=== PATIENT | female | born 1990 | race Caucasian/White ===

== ENCOUNTER 2019-02-06 05:59 | Inpatient (IN) | payer OTHER ==
[2019-02-04 13:47] LABS: ABS Eosinophils 0.2 10^3/ul (0-0.6); ABS Lymphocytes 1.8 10^3/ul (1.0-4.8); ABS Neutrophils 8.8 10^3/ul (1.5-7.7); Eosinophil % 1.6 %; Hematocrit 36 % (35-47); Hemoglobin 12.5 g/dL (12.0-16.0); Lymphocyte % 15.4 %; Mean Corpuscular HGB Conc 35 g/dL (31-36); Mean Corpuscular Hemoglobin 31 pg (27-31); Mean Corpuscular Volume 90 fL (80-97); Mean Platelet Volume 8.3 fL (7.4-10.4); Platelet Count 238 10^3/uL (150-450); Red Blood Count 4.02 10^6 /uL (3.70-4.87); Red Cell Distribution Width 14 % (10-15); White Blood Count 11.8 10^3/uL (3.5-10.8)
--- NOTE | 2019-02-05 20:44 | HP ---
General Information - Reason for Visit at Term, prior section X 2, desires permanent surgical sterilization via bilateral tubal ligation. - General Information Maternal Age: 29 Grav: 4 Para: 2 SAB: 0 IEA: 0 Estimated Due Date: 02/13/19 Determined By: LMP Gestational Age in Weeks/Days: 39 Maternal Blood Type and Rh: A Positive - Results this Serology/RPR Result: Non-Reactive Rubella Result: Immune HBsAg Result: Negative HIV Result: Negative GBS Culture Result: Negative Past Medical History Delivery History: Hx C/Section - 2008 primary for twins, 2011 Repeat , See Records Pertinent Past Medical History: See Records Past Medical History Comment: Asthma Pertinent Past Surgical History: See Records Past Surgical History Comment: Cholecystectomy 2014 Sections 2008 and 2011 Pertinent Family History: See Records - Diabetes, HTN, Stroke, Blood clots. - Antepartal Records Antepartal Records: Reviewed, Complicated by: - 2 prior sections, BMI 39 Review of Systems Constitutional: Comfortable CV Complaint: No Respiratory: Shortness of Breath: No Gastrointestinal: No Nausea/Vomiting, Normal Bowel Movement, Nausea, Vomiting Genitourinary: No Dysuria, No Bleeding, No Leaking Fluid Musculoskeletal: No Complaint, No Epigastric Pain Neurological: No Headache, No Visual Changes Movement: Normal Exam Allergies/Adverse Reactions: Allergies MS Amoxicillin [From Augmentin] Allergy (Intermediate, Verified 02/04/19 14:06) Rash MS Clavulanic Acid [From Augmentin] Allergy (Intermediate, Verified 02/04/19 14: 06) Rash Penicillins Allergy (Verified 02/04/19 14:05) Rash Temp 98.7 BP 132/84 P 72 RR 20 Lab Values - Entire Visit: Laboratory Tests 02/04/19 02/04/19 13:30 13:30 WBC 11.8 H RBC 4.02 Hgb 12.5 Hct 36 MCV 90 MCH 31 MCHC 35 RDW 14 Plt Count 238 MPV 8.3 Neut % (Auto) 74.7 Lymph % (Auto) 15.4 [place] % (Auto) 8.1 Eos % (Auto) 1.6 Baso % (Auto) 0.2 Absolute Neuts (auto) 8.8 H Absolute Lymphs (auto) 1.8 Absolute Monos (auto) 1.0 H Absolute Eos (auto) 0.2 Absolute Basos (auto) 0.0 Absolute Nucleated RBC 0.0 Nucleated RBC % 0.0 Blood Type A Positive Antibody Screen Negative - Measurements Height: 5 ft 3 in Weight: 242 lb Weight in lbs: 242.472603 Body Mass Index (BMI): 42.8 Pre- Weight: 209 lb Weight Gained This : 33 lbs and 0 ozs - Exam Breast: Breast Exam Deferred CVA: No CVA Tenderness Extremities: No Edema Heart: Normal Rhythm/Heart Sounds HEENT: No Significant Findings Lungs: Clear Bilaterally Rectal: Rectal Exam Deferred Reflexes: DTR 2+ Thyroid: No Thyromegaly - Abdominal Exam Abdomen Exam: Non-Tender, Fundal Height Consistent with Dates - Ultrasound/Biophysical Profile Ultrasound Status: Not Done Targeted Exam Findings See L&D Outpatient Visit Provider Note for Findings: N/A Cervical Exam: Closed Effacement: 50% Station: -1 Presenting Part: Vertex Membrane Status: Intact Bleeding/Discharge: None EFM Findings - External Monitor Findings Baseline Heart Rate: 140 Contractions: None Assessment/Plan - Assessment at 39 weeks, two prior sections, desires sterilization. - Obstetrical Risk Factors Obstetrical Risk Factors: Obesity - BMI 39, Previous C/Section in Labor - Plan Plan: IV Hydration, Expedite C/S Delivery, Antibiotic Prophylaxis Plan Comment: Plan Repeat Section and bilateral tubal ligation. - Date/Time of Admission Date of Admission: 02/06/19 - History/Physical from 01/30/19 no interval change. Time of Admission: 07:00
[~2019-02-06 05:59] MED LIST: Buffered Lidocaine 1% SYRIN* 1 ML/SYRINGE INTRADERM ONE
[2019-02-06] MEDS ORDERED: Sodium Citrate/Citric Acid* 15 ML UDC PO ONE (06:00)
[2019-02-06] MEDS ORDERED: Lactated Ringers 1000 ML Bag* 1,000 ML IV SCH ×2 (06:00→10:00)
[2019-02-06] MEDS ORDERED: Buffered Lidocaine 1% SYRIN* 1 ML/SYRINGE INTRADERM ONE (07:00)
[2019-02-06] MEDS ORDERED: Lactated Ringers 1000 ML Bag* 1,000 ML IV ONE (07:00)
[2019-02-06] MEDS ORDERED: Clindamycin 900 MG/D5W BAG(*) 900 MG/50 ML BAG IVPB ONE (07:15)
[2019-02-06] MEDS ORDERED: Gentamicin ADULT (*) 120 MG in NS 0.9% 100 ML* 100 ML IVPB ONE (07:15)
[2019-02-06] MEDS ORDERED: Phenylephrine 40 MCG/ML SYRINGE ONE (07:27)
[2019-02-06] MEDS ORDERED: OXYTOCIN* 10 UNITS/ML 1 ML VIAL ONE (07:27)
[2019-02-06] MEDS ORDERED: Morphine PF AMP (0.5MG/ML)* 5 MG/10 ML AMP ONE (07:27)
[2019-02-06] MEDS ORDERED: fentaNYL* 50 MCG/ML 2 ML VIAL (100 MCG VIAL) IV PRN (07:37)
[2019-02-06] MEDS ORDERED: Scopolamine 1.5 mg* PATCH TRANSDERM PRN (07:37)
[2019-02-06] MEDS ORDERED: Naloxone* 0.4 MG/ML 1 ML VIAL IV PRN ×2 (07:37→08:49)
[2019-02-06] MEDS ORDERED: Ondansetron INJ* 2 MG/ML VIAL IV PRN ×2 (07:37→08:49)
[2019-02-06] MEDS ORDERED: Clindamycin 900 MG IVPREMIX(* 900 MG/50 ML SDV IV ONE (08:00)
[2019-02-06] MEDS ORDERED: Ondansetron INJ* 2 MG/ML VIAL ONE (08:14)
[2019-02-06] MEDS ORDERED: diPHENhydraMINE IV* 50 MG/ML 1 ml VIAL (BENADRYL) IV PRN (08:49)
[2019-02-06] MEDS ORDERED: Nalbuphine* 10 MG/ML 1 ML VIAL IV PRN (08:49)
[2019-02-06] MEDS ORDERED: oxyCODONE/Acetamin 5/325 MG* TAB PO PRN ×2 (08:49)
[2019-02-06] MEDS ORDERED: fentaNYL* 50 MCG/ML 2 ML VIAL (100 MCG VIAL) ONE ×2 (08:55→09:15)
[2019-02-06] MEDS ORDERED: Ketorolac INJ* 30 MG/ML 1 ML VIAL ONE (08:57)
[2019-02-06] MEDS ORDERED: DiMENhydriNATE IV* 50 MG/ML VIAL ONE (08:57)
[2019-02-06] MEDS ORDERED: Witch Hazel PAD* JAR TOPICAL PRN (09:29)
[2019-02-06] MEDS ORDERED: Glycerin ADULT SUPP PR PRN (09:29)
[2019-02-06] MEDS ORDERED: Zolpidem TAB* 5 MG PO PRN ×2 (09:29→23:59)
[2019-02-06] MEDS ORDERED: Dibucaine 1% 28.35 GM TUBE PR PRN (09:29)
[2019-02-06] MEDS: Ketorolac INJ* 30 MG/ML 1 ML VIAL IV PRN ×2 (15:24→21:51)
[2019-02-06] MEDS: Docusate CAP* 100 MG PO SCH ×2 (15:25→21:51)
[2019-02-06] MEDS: Simethicone TAB* 80 MG TAB.CHEW PO SCH ×3 (15:25→21:51)
[2019-02-06] MEDS: Albuterol HFA INHALER* 8 gm MDI INH PRN (19:03)
--- NOTE | 2019-02-06 23:33 | OP ---
DATE OF OPERATION: 02/06/19 - ROOM #102 DATE OF : 89 SURGEON: Negro Michelle MD FIRMWARE TEST ENGINEER: Dr. Montes. ANESTHESIA: Spinal. PRE-OP DIAGNOSIS: at 39 weeks. Prior section x2 and desires permanent surgical sterilization. POST-OP DIAGNOSIS: at 39 weeks. Prior section x2 and desires permanent surgical sterilization. OPERATIVE PROCEDURE: Repeat low transverse section with bilateral tubal ligation via fimbriectomy. ESTIMATED BLOOD LOSS: 600 cc. SPECIMEN SENT TO PATHOLOGY: Cord blood and portions of the left and right fallopian tubes. FLUIDS: She received 2300 cc of IV crystalloid fluid. URINE OUTPUT: Clear. FINDINGS: Delivery of a viable female with a weight of 7 pounds 9 ounces with Apgars of 9 and 9. The placenta was grossly intact with a 3-vessel cord noted. The uterus, adnexa and bowel and bladder were within normal limits. There were no complications. DESCRIPTION OF PROCEDURE: The patient was taken to the operating room where she was identified. She was placed on the operating table where a spinal anesthetic was obtained without difficulty. She was placed in the supine position with a leftward tilt, prepped and draped in a normal sterile fashion. A Pfannenstiel skin incision was made with a knife and carried through to the underlying layer of fascia. The fascia was nicked in the midline and extended laterally with curved Lopez scissors. The fascia was grasped superiorly and inferiorly with Carmela clamps and dissected off sharply from the rectus muscle. The rectus muscle was in the midline bluntly. The peritoneum was identified, grasped with pickups, and entered sharply with Metzenbaum scissors and extended superiorly and inferiorly sharply. A bladder blade was inserted into the patient's abdomen. A bladder flap was created using Metzenbaum scissors, over which the bladder blade was then reinserted. A low-transverse uterine incision was made with a knife, extended laterally with bandage scissors. The infant's head was then grasped and delivered atraumatically. The nose and mouth were suctioned. The infants body was then delivered, the cord was clamped and cut and the infant was handed off to waiting dry transfer worker. Cord bloods were obtained. The placenta was removed manually. The uterus was then exteriorized, cleared of all clot and debris using moist laparotomy sponges. The uterine incision was then closed using 0-Polysorb suture in a running locked fashion with a second imbricating layer of 0-Polysorb suture with good hemostasis noted. Attention was then brought on to the patient's fallopian tube for the bilateral tubal ligation via fimbriectomy in the usual fashion was performed with portion from the right and left tube and fimbria were sent to pathology. At this point, the uterus was returned to the patient' s abdomen. The gutters were then cleared of all clots and debris using moist laparotomy sponges. All the sponges were removed from the patient's abdomen. The peritoneum was then closed using 3-0 Polysorb suture in a running fashion. The fascia was closed using 0-Polysorb suture in a running fashion. The subcutaneous Ishaan's fascia was closed using 3-0 Polysorb suture in interrupted stitches and the skin was closed with 4-0 Monocryl in subcuticular stitch. The patient tolerated the procedure well. Sponge, lap, and needle counts were correct x2. She was then transferred to the recovery room area in stable condition. [id number] #: [id number] KRYSTYNA
[2019-02-07] MEDS ORDERED: oxyCODONE/Acetamin 5/325 MG* TAB PO PRN ×2 (00:04)
[2019-02-07] MEDS: Ketorolac INJ* 30 MG/ML 1 ML VIAL IV PRN (03:58)
[2019-02-07 06:59] LABS: ABS Eosinophils 0.2 10^3/ul (0-0.6); ABS Lymphocytes 1.6 10^3/ul (1.0-4.8); ABS Monocytes 1.4 10^3/ul (0-0.8); ABS Neutrophils 9.9 10^3/ul (1.5-7.7); Eosinophil % 1.6 %; Hematocrit 31 % (35-47); Hemoglobin 10.9 g/dL (12.0-16.0); Lymphocyte % 12.3 %; Mean Corpuscular HGB Conc 35 g/dL (31-36); Mean Corpuscular Hemoglobin 31 pg (27-31); Mean Corpuscular Volume 91 fL (80-97); Mean Platelet Volume 8.6 fL (7.4-10.4); Platelet Count 195 10^3/uL (150-450); Red Blood Count 3.45 10^6 /uL (3.70-4.87); Red Cell Distribution Width 14 % (10-15); White Blood Count 13.1 10^3/uL (3.5-10.8)
[2019-02-07] MEDS: Docusate CAP* 100 MG PO SCH ×3 (08:21→20:37)
[2019-02-07] MEDS: Simethicone TAB* 80 MG TAB.CHEW PO SCH ×4 (08:21→20:37)
[2019-02-07] MEDS ORDERED: Ferrous Gluconate TAB* 324 MG TAB PO SCH (09:00)
[2019-02-07] MEDS: Acetaminophen TAB* 325 MG PO PRN ×2 (11:09→16:28)
[2019-02-07] MEDS: Ibuprofen TAB* 600 MG PO PRN ×3 (11:09→23:33)
[2019-02-07] MEDS: Albuterol HFA INHALER* 8 gm MDI INH PRN (20:38)
[2019-02-08] MEDS: Ibuprofen TAB* 600 MG PO PRN ×2 (05:32→11:31)
[2019-02-08 07:52] VITALS: BP 120/68
[2019-02-08] MEDS: Docusate CAP* 100 MG PO SCH (09:09)
[2019-02-08] MEDS: Simethicone TAB* 80 MG TAB.CHEW PO SCH ×2 (09:10→13:01)
[2019-02-08] MEDS: Acetaminophen TAB* 325 MG PO PRN (09:10)
[2019-02-09] MEDS ORDERED: Scopolamine PATCH Remove* 1 NOTE MISC PATCH OFF ONE (07:38)
== END 2019-02-08 14:03 | disposition home or self-care (01) | DRG 540 ==
LOC: MCHOB 05:59
PROVIDERS: ADMIT Obstetrics & Gynecology; ATTEND Obstetrics & Gynecology
PROC: 4A1HXCZ Monitoring of Products of Conception, Cardiac Rate, External Approach (ICD-10-PCS; 2019-02-06)
PROC: 0UB70ZZ Excision of Bilateral Fallopian Tubes, Open Approach (ICD-10-PCS; 2019-02-06)
PROC: 10D00Z1 Extraction of Products of Conception, Low, Open Approach (ICD-10-PCS; principal; 2019-02-06 07:30)
DX: O34.211 Maternal care for low transverse scar from previous cesarean delivery (principal); J45.909 Unspecified asthma, uncomplicated; O99.52 Diseases of the respiratory system complicating childbirth; O99.214 Obesity complicating childbirth; O99.334 Smoking (tobacco) complicating childbirth; F17.200 Nicotine dependence, unspecified, uncomplicated; Z3A.39 39 weeks gestation of pregnancy; Z37.0 Single live birth; Z88.1 Allergy status to other antibiotic agents; Z88.0 Allergy status to penicillin; Z90.49 Acquired absence of other specified parts of digestive tract; Z30.2 Encounter for sterilization
CPT/HCPCS: 36415; 85025; 86850; 86900; 86901; 88302; A9270-GY; J1240; J1580; J1885; J2300; J2405; J2590; J3010